=== PATIENT | male | born 1985 | race Caucasian/White ===

== ENCOUNTER 2017-12-24 00:29 | Emergency (ER) | payer OTHER, SELFPAY ==
[2017-12-24 00:29] VITALS: BP 140/70; PULSE 64; RESP 16; TEMP 36.3; O2SAT 98; BMI 29.3
--- NOTE | 2017-12-24 00:50 | CT_ITS ---
STUDY: CT ABDOMEN AND PELVIS WITH CONTRAST REASON FOR EXAM: Male, 32 years old. Lower abdominal pain. Peroneal vein. RADIATION DOSAGE (If Supplied By Facility): CTDIvol = ( 17.82 ) mGy, DLP = ( 1139.35 ) mGycm TECHNIQUE: Transaxial images were obtained from the dome of the diaphragm to the symphysis pubis without oral contrast. 100ML ml of Isovue 300 contrast was administered. Sagittal and coronal images were reconstructed. Individualized dose optimization techniques were used for this CT. COMPARISON: None. FINDINGS: The visualized lung bases are unremarkable. The visualized portions of the heart are within normal limits. Normal liver. Normal gallbladder and extrahepatic biliary system. Normal spleen. Normal pancreas. Normal bilateral adrenal glands. Normal right kidney. Normal left kidney. Normal visualized stomach. Normal small intestine. Normal colon. The appendix is visualized and appears normal. Normal abdominal aorta. Normal inferior vena cava. Normal retroperitoneum. Normal urinary bladder. Normal abdominal wall. Normal osseous structures. CT/Abdomen/Pelvis WITH Contrast IMPRESSION: Normal enhanced CT of the abdomen and pelvis. Electronically Signed: Kat Dixon MD at 3:01 EDT Tel , Service support ,
[2017-12-24] MEDS: 0.9% Normal Saline 1,000 ML 1000 ML IV (01:04)
[2017-12-24 01:24] LABS: Absolute Lymphocyte Count 1.66 X10^3/ul (0.83-4.51); Absolute Neutrophil Count 3.3 X10^3/uL (2.0-7.7); Basophil# 0.02 X10^3/uL; Basophil% 0.3 % (0-1); Eosinophil# 0.38 X10^3/uL; Eosinophils% 6.2 % (0-5); Hematocrit 44.1 % (40-54); Hemoglobin 15.3 g/dl (13.0-16.5); Lymphocyte # 1.66 X10^3/ul (4.0); Lymphocyte % 27.2 % (19-41); Mean Corp Hgb Conc 34.7 g/gl (32-36); Mean Corpuscular Hgb 27.7 pg (27.0-32.0); Mean Corpuscular Volume 79.7 fL (80-94); Mean Platelet Vol. 9.2 fl (6.2-12.0); Monocyte# 0.74 X10^3/uL; Monocyte% 12.1 % (0-10); Neutrophil # 3.29 X10^3/uL (2.7-7.7); POSITIVE COUNT NO; POSITIVE DIFFERENTIAL NO; POSITIVE MORPHOLOGY NO; Platelet Count 227 K/mm3 (150-450); RBC Distribution Width CV 12.6 % (11.6-14.6); RBC Distribution Width SD 36.7 fl (35.1-43.9); Red Blood Count 5.53 M/mm3 (4.6-6.2); White Blood Count 6.1 K/mm3 (4.4-11.0)
[2017-12-24 01:26] LABS: Anion Gap 4 (5-15); BUN 14 mg/dL (7-18); BUN/Creat Ratio 12.7 RATIO (10-20); Calcium,Total 8.9 mg/dL (8.5-10.1); Chloride 105 mmol/L (98-107); EST Glomerular Filtration Rate 83 mL/min (>60); Est Glom Filt Rate - Afr Amer 100 mL/min (>60); Estimated Creatinine Clearance 117.36 ml/min; Glucose 98 mg/dL (74-106); Potassium 4.3 mmol/L (3.5-5.1); Sodium Level 140 mmol/L (136-145)
[2017-12-24 02:29] VITALS: RESP 16
--- NOTE | 2017-12-24 03:27 | ED.VISSUMM ---
- ER Visit Summary Date of Service: 12/24/17 Chief Complaint: Perianal pain History of Present Illness: The patient is a [address] Busby. Reports that approximately 2 weeks ago began having pain around his anus. States that at that time he also had some ulcers on the superior portion of his gluteal cleft. Those have resolved. He was seen in urgent care and was told that he may have hemorrhoids (although he reports that he did not do exam) and he was placed on which Azo and rectal suppositories. States that he has used these for 9 days without any relief. Patient reports that he is a left lower quadrant abdominal pain that began today. It is a dull pain is 410 at worst and 2 out of 10 currently. Is worsened by nothing relieved by nothing. He denies any nausea, vomiting, or diarrhea. Reports his last bowel was partially 10 days ago and typically goes every other day. He denies any dysuria or frequency. Physical Examination: Vitals: Stable. Afebrile. General: Well-nourished and well-developed. Head: Normocephalic atraumatic. Neck: Supple, no lymphadenopathy. No JVD. Nontender. Cardiovascular: Regular rate and rhythm. No murmurs. Respiratory: No respiratory distress. Clear to auscultation bilaterally. Abdominal: Soft, nontender, nondistended, normal bowel sounds. No guarding, rebound, or peritoneal signs. Rectal: The perianal area is red and inflamed and moderately tender to palpation. There are no external hemorrhoids. Back: Nontender. Extremities: Nontender, no edema. Skin: Multiple dime sized superficial ulcerations to the left gluteal fold. Neurologic: Alert and oriented ?3. Cranial nerves II through XII are intact. Normal strength and sensation. Psych: Normal affect. Test Results: CBC is marked for monocytes 12 and eosinophils of 6. Chem-[address] the abdomen pelvis. IV contrast is normal. Emergency Department Course and Treatment: Patient is resting comfortably and refused pain medications. Treatment Plan: Patient will be discharged instructions to use Desitin to the irritated perianal area. He has been placed on Bactroban to the superficial ulcerations. He did have a prolonged discussion with him about this. He does not have a family history of Crohn's or ulcerative colitis. However, he does report that he had bloody stools approximately 6 months ago that had resolved. He will be discharged instructions follow-up Dr. Busby in 3-5 days for repeat exam. He is also given the phone number for Dr. Metz to call as I suspect he may need colonoscopy as well. Return to the emergency department for any worsening symptoms. Disposition: To home in improved and stable condition. Impression: 1. Perianal irritation. 2. Multiple superficial ulcers to left gluteal fold. This note was generated with [employer] dictation software. It may contain incorrect words, spelling, and punctuation that were not noted in review of the chart prior to signing ED Disposition - Plan for ED Patient: Disposition: Home or Assisted Living Chief Complaint: Constipation Instructions: ED Pruritus Ani Anal Itching Prescriptions: Mupirocin Calcium [Bactroban] 30 gm TP 4X/DAY #1 tube Referrals: Tito Busby DO [Primary Care Provider] - Katelyn Metz MD [STAFF PHYSICIAN] - 3-5 Days if not improving
[2017-12-24 04:12] VITALS: PULSE 81; RESP 14; O2SAT 100
== END 2017-12-24 04:18 | disposition home or self-care (01) ==
LOC: ED 01:05
PROVIDERS: Emergency Provider Emergency Medicine; Family Provider Student in an Organized Health Care Education/Training Program; PCP Student in an Organized Health Care Education/Training Program
DX: K62.89 Other specified diseases of anus and rectum (principal); L98.498 Non-pressure chronic ulcer of skin of other sites with other specified severity
CPT/HCPCS: 36415; 74177; 80048; 85025; 96360; 96361; 99283; J7030; Q9967

== ENCOUNTER 2018-01-26 23:06 | Emergency (ER) | payer OTHER, SELFPAY ==
[2018-01-26 23:07] VITALS: BP 112/71; PULSE 102; RESP 16; TEMP 36.2; O2SAT 95; BMI 28.7
--- NOTE | 2018-01-26 23:21 | RAD_ITS ---
STUDY: X-RAY - RIGHT SHOULDER REASON FOR EXAM: Male, 33 years old. Shoulder pain after acute lung injury. Ran into fence playing softball. TECHNIQUE: 4 view(s) of the shoulder. COMPARISON: None. FINDINGS: Normal glenohumeral articulation. Normal acromioclavicular joint. Normal acromion. Normal humeral head and visualized proximal humerus. The soft tissue structures are unremarkable. Normal visualized pulmonary apex. RAD/Shoulder min 2 Views IMPRESSION: Normal x-ray examination of the shoulder. Electronically Signed: Brooklyn Iyer MD at 23:39 EDT , Service support ,
--- NOTE | 2018-01-26 23:23 | ED.DCSUM_ITS ---
- ER Visit Summary Date of Service: 01/26/18 Chief Complaint: [] Injury to right shoulder chest History of Present Illness: The patient is a 33 M was playing softball and was out in the outfield and jumped up and jammed his right shoulder on the top of the wall. He is having pain where his chest muscle meets his arm. No significant lateral shoulder pain. No significant neck pain. No home treatment. Just happened prior to arrival Physical Examination: [] Vital signs reviewed General: Well-nourished well-developed Head: Normocephalic atraumatic Eyes: Pupils equal round and reactive to light extraocular movements intact ENT: TMs clear no hemotympanum no trauma Neck: Nontender full range of motion Cardiovascular: Regular rate rhythm no murmurs normal S1-S2 Respiratory: No distress clear to auscultation bilaterally chest right lateral chest wall pectoral Abdomen: Soft nontender nondistended normal bowel sounds no masses Back: Nontender no CVA tenderness Extremities: Nontender active range of motion ?4 extremities no trauma Skin: Normal color no trauma Neuro alert oriented cranial nerves II through XII intact normal strength sensation reflexes Test Results: [] Emergency Department Course and Treatment: [] Patient did waiting for pain. Using ice pack. X-ray of the shoulder obtained. X-ray negative. At this time I think the patient just strained his pectoralis muscle. He definitely did not completely tear. He will continue anti-inflammatories and follow-up. Treatment Plan: [] Disposition: [] Impression: [] Right-sided chest wall injury This note was generated with [employer] dictation software. It may contain incorrect words, spelling, and punctuation that were not noted in review of the chart prior to signing ED Disposition - Plan for ED Patient: Chief Complaint: Upper Extremity Injury Referrals: Tito Busby DO [Primary Care Provider] -
--- NOTE | 2018-01-26 23:47 | ED.DEP ---
ED Disposition - Plan for ED Patient: Chief Complaint: Upper Extremity Injury Instructions: ED Strain Chest Wall Referrals: Tito Busby DO [Primary Care Provider] -
== END 2018-01-26 23:55 | disposition home or self-care (01) ==
LOC: ED 23:39
PROVIDERS: Emergency Provider Emergency Medicine; Family Provider Student in an Organized Health Care Education/Training Program; PCP Student in an Organized Health Care Education/Training Program
DX: S29.9XXA Unspecified injury of thorax, initial encounter (principal); W22.09XA Striking against other stationary object, initial encounter; Y93.64 Activity, baseball; Y92.320 Baseball field as the place of occurrence of the external cause; Y99.8 Other external cause status
CPT/HCPCS: 73030; 99282

== ENCOUNTER 2018-02-05 09:01 | Emergency (ER) | payer OTHER, SELFPAY ==
[2018-02-05 09:01] VITALS: BP 129/71; PULSE 55; RESP 15; TEMP 36.6; O2SAT 98; BMI 29.6
[2018-02-05 09:44] VITALS: BP 136/67; PULSE 56; RESP 15; O2SAT 96
[2018-02-05 09:45] VITALS: O2SAT 97
[2018-02-05 09:57] LABS: Absolute Lymphocyte Count 1.44 X10^3/ul (0.83-4.51); Absolute Neutrophil Count 2.6 X10^3/uL (2.0-7.7); Basophil# 0.02 X10^3/uL; Basophil% 0.4 % (0-1); Eosinophil# 0.38 X10^3/uL; Eosinophils% 7.8 % (0-5); Hemoglobin 16.1 g/dl (13.0-16.5); Lymphocyte # 1.44 X10^3/ul (4.0); Lymphocyte % 29.6 % (19-41); Mean Corp Hgb Conc 33.5 g/gl (32-36); Mean Corpuscular Hgb 27.1 pg (27.0-32.0); Mean Corpuscular Volume 80.7 fL (80-94); Mean Platelet Vol. 8.8 fl (6.2-12.0); Monocyte# 0.47 X10^3/uL; Monocyte% 9.7 % (0-10); Neutrophil # 2.56 X10^3/uL (2.7-7.7); Neutrophil % 52.5 % (47-70); Platelet Count 213 K/mm3 (150-450); RBC Distribution Width CV 12.7 % (11.6-14.6); RBC Distribution Width SD 37.2 fl (35.1-43.9); Red Blood Count 5.95 M/mm3 (4.6-6.2); White Blood Count 4.9 K/mm3 (4.4-11.0)
[2018-02-05 09:58] LABS: POSITIVE COUNT NO; POSITIVE DIFFERENTIAL NO; POSITIVE MORPHOLOGY NO
[2018-02-05 10:10] LABS: Anion Gap 4 (5-15); BUN 13 mg/dL (7-18); Calcium,Total 9.1 mg/dL (8.5-10.1); Chloride 104 mmol/L (98-107); Creatinine, Serum 0.93 mg/dL (0.70-1.30); EST Glomerular Filtration Rate 101 mL/min (>60); Est Glom Filt Rate - Afr Amer 122 mL/min (>60); Estimated Creatinine Clearance 137.55 ml/min; Glucose 99 mg/dL (74-106); Potassium 4.1 mmol/L (3.5-5.1); Sodium Level 138 mmol/L (136-145)
--- NOTE | 2018-02-05 10:12 | ED.VISSUMM ---
- ER Visit Summary Date of Service: 02/05/18 Chief Complaint: Right shoulder and chest pain History of Present Illness: The patient is a 33 M presenting with pain to his right shoulder and right upper chest. He states this started 10 days ago when he had an injury playing baseball. He states he went for a ball in the outfield and strained his right shoulder. He was seen in the ED at that time. He had x-rays of his right shoulder which were unremarkable. He was advised to follow-up with his primary care physician if he had continued pain. He called today to follow-up with his primary care physician and was advised to come back to the emergency department. He states that he has been having pain with deep inspiration and inability to take a deep breath. Denies other complaints. Physical Examination: Vitals are stable. Patient is afebrile. Alert no acute distress. HEENT exam is unremarkable. Neck is supple. Lungs are clear and equal bilaterally. Heart is regular rate and rhythm. Right upper chest wall tenderness, no crepitus Abdomen is soft nontender nondistended. Extremities right anterior shoulder tenderness, AFROM Skin is warm and dry. No focal neurologic deficit. Normal strength and sensation Remainder of exam is unremarkable. Emergency Department Course and Treatment: EKG is sinus bradycardia rate of 57. CBC, chemistries unremarkable. Troponin is negative. CTA chest was obtained and is normal CTA chest examination, without a demonstrated pulmonary embolism or arterial dissection. On reevaluation, patient is resting comfortably. He is given a prescription for naproxen. Advised to follow-up with his primary care physician. Advised return to ED for any worsening complaints. Disposition: Discharge home Impression: Chest wall strain This note was generated with [employer] dictation software. It may contain incorrect words, spelling, and punctuation that were not noted in review of the chart prior to signing ED Disposition - Plan for ED Patient: Chief Complaint: Shortness of Breath Instructions: ED Strain Chest Wall Prescriptions: Naproxen [Naprosyn] 500 mg PO BID PRN #20 tablet Referrals: Tito Busby DO [Primary Care Provider] - Bakari England MD [STAFF PHYSICIAN] -
--- NOTE | 2018-02-05 10:55 | ED.DEP ---
ED Disposition - Plan for ED Patient: Chief Complaint: Shortness of Breath Instructions: ED Strain Chest Wall Prescriptions: Naproxen [Naprosyn] 500 mg PO BID PRN #20 tablet Referrals: Tito Busby DO [Primary Care Provider] - Bakari England MD [STAFF PHYSICIAN] -
[2018-02-05 11:15] VITALS: BP 132/75; PULSE 59; RESP 15; O2SAT 99
--- NOTE | 2018-02-07 11:54 | CM.ED ---
ED CALLBACK: Follow-up call placed to patient with no answer. Voicemail left with return contact information.
== END 2018-02-05 11:16 | disposition home or self-care (01) ==
PROVIDERS: Emergency Provider Emergency Medicine; Family Provider Student in an Organized Health Care Education/Training Program; PCP Student in an Organized Health Care Education/Training Program
DX: S29.011D Strain of muscle and tendon of front wall of thorax, subsequent encounter (principal); X50.1XXD Overexertion from prolonged static or awkward postures, subsequent encounter
CPT/HCPCS: 71275; 80048; 84484; 85025; 93005; 99283; Q9967; A4216